=== PATIENT | female | born 1970 | race Caucasian/White ===

== ENCOUNTER → 2016-11-27 | Outpatient (CLI) | payer BC ==
--- NOTE | 2016-11-27 12:45 | US ---
EXAMINATION TYPE: US abdomen complete DATE OF EXAM: 11/27/2016 11:28 AM COMPARISON: NONE CLINICAL HISTORY: US. Hematuria, RUQ pain, right flank pain EXAM MEASUREMENTS: Liver Length: 17.3cm Gallbladder Wall: 0.2cm CBD: 0.3cm Spleen: 12.2cm Right Kidney: 9.7 x 3.7 x 5.0cm Left Kidney: 10.3 x 4.5 x 4.4cm ANATOMY: Pancreas: visualized portions appear wnl, tail obscured by overlying bowel content Liver: upper limits of normal in size Gallbladder: no evidence of stones Evidence for sonographic Foreman's sign: No CBD: appears wnl Spleen: appears wnl Right Kidney: No hydronephrosis or masses seen Left Kidney: No hydronephrosis or masses seen Upper IVC: wnl Abd Aorta: visualized portions appear wnl Bladder: not fully distended, appears wnl as visualized *Bilateral bladder jets seen The liver is homogenous. The intrahepatic portion of the IVC and proximal abdominal aorta are within normal limits. There is no evidence of cholelithiasis. Common bile duct is unremarkable. The visu alized portions of the pancreas are homogenous. The spleen is unremarkable. Kidneys are symmetric a nd free of hydronephrosis. No renal lesions are seen. IMPRESSION: No distinct abnormality identified. Normal Values: Liver Length: < 16cm wnl, 17-18cm upper limits, >18cm enlarged Spleen Length = < 13cm Renal Length = 9 - 12cm GB Wall: < 0.3cm CBD: < 0.6cm or < 1.0cm post cholecystectomy
== END | disposition home or self-care (01) ==
LOC: RADUSWWP 10:52
PROVIDERS: ATTEND Internal Medicine
DX: R10.11 Right upper quadrant pain (principal); R31.9 Hematuria, unspecified
CPT/HCPCS: 76700; 76857

== ENCOUNTER → 2018-03-25 | Outpatient (CLI) | payer BC ==
--- NOTE | 2018-03-25 09:18 | NM ---
Nuclear medicine hepatobiliary scan. HISTORY: Pain. DOSAGE: The patient received 8 ounces of ensure plus and 5.3 mCi of Technetium 99m Choletec. FINDINGS: There is normal hepatic extraction. The gallbladder is seen by 20 minutes. Ejection fracti on is 78%. IMPRESSION: 1. Normal hepatobiliary exam
== END | disposition home or self-care (01) ==
LOC: RADNMMAIN 06:52
PROVIDERS: ATTEND Internal Medicine
DX: K21.0 Gastro-esophageal reflux disease with esophagitis (principal); R12 Heartburn; R14.0 Abdominal distension (gaseous)
CPT/HCPCS: 78226; A9537

== ENCOUNTER → 2019-05-08 | Outpatient (CLI) | payer BC ==
--- NOTE | 2019-05-09 09:12 | MM ---
Reason for exam: screening (asymptomatic). Last mammogram was performed 1 year and 8 months ago. History: Benign US left guided VAD of the left breast, October 03, 2010. Took hormonal contraceptives for 16 years. Physical Findings: A clinical breast exam by your physician is recommended on an annual basis and results should be correlated with mammographic findings. MG 3D Screening Mammo W/Cad Bilateral CC and MLO view(s) were taken. Prior study comparison: September 14, 2017, bilateral MG screening mammo w CAD. September 11, 2016, bilateral MG screening mammo w CAD. The breast tissue is heterogeneously dense. This may lower the sensitivity of mammography. Previous mammotome biopsy in the left breast. There is chronic nodularity in the left breast. No significant changes when compared with prior studies. ASSESSMENT: Benign, BI-RAD 2 RECOMMENDATION: Routine screening mammogram of both breasts in 1 year.
== END | disposition home or self-care (01) ==
LOC: RADMAMWWP 07:01
PROVIDERS: ATTEND Internal Medicine
DX: Z12.31 Encounter for screening mammogram for malignant neoplasm of breast (principal)
CPT/HCPCS: 77063; 77067

== ENCOUNTER → 2019-08-28 | Outpatient (CLI) | payer BC ==
--- NOTE | 2019-08-28 08:34 | US ---
EXAMINATION TYPE: US pelvis complete transvag DATE OF EXAM: 08/28/2019 COMPARISON: NONE CLINICAL HISTORY: R10.2 pelvic pain. TECHNIQUE: Transvaginal (TV) and Transabdominal (TA) . Transabdominal sonographic images of the pel vis were acquired. Transvaginal sonographic images were medically necessary to better assess the fol lowing anatomy: Ovaries Date of LMP: 08/24/19 EXAM MEASUREMENTS: Uterus: 9.1 x 5.9 x 5.2 cm Endometrial Stripe: 0.9 cm Right Ovary: 2.1 x 1.7 x 1.7 cm Left Ovary: 2.9 x 1.8 x 1.4 cm 1. Uterus: Retroverted bulky, heterogeneous 2. Endometrium: wnl 3. Right Ovary: Dominant follicle measures 1.6 x 1.0 x 1.2 cm 4. Left Ovary: with follicles, largest measuring 1 cm Spectral, color and waveform doppler imaging shows good arterial and venous flow within the ovaries ; there is no evidence for ovarian torsion. 5. Bilateral Adnexa: wnl 6. Posterior cul-de-sac: wnl IMPRESSION: 1. Heterogenous appearance of the retroverted uterus without well-circumscribed lesion. Consideration could be given to multiple small noncircumscribed leiomyomas or less likely adenomyosis. 2. Endometrial thickness would be within normal limits for a premenopausal female in this patient wit h last stated menstrual cycle of 08/24/2019.
== END ==
LOC: RADUSWWP 07:23
PROVIDERS: ATTEND Internal Medicine
DX: N85.4 Malposition of uterus (principal)
CPT/HCPCS: 76830; 76856

== ENCOUNTER → 2020-10-09 | Outpatient (CLI) | payer BC ==
--- NOTE | 2020-10-09 08:46 | US ---
EXAMINATION TYPE: US pelvis complete transvag DATE OF EXAM: 10/09/2020 COMPARISON: US CLINICAL HISTORY: R10.2 pelvic and perin. Pelvic pain 2 weeks prior to menstrual cycle; TECHNIQUE: Transvaginal (TV) and Transabdominal (TA) . Transabdominal sonographic images of the pel vis were acquired. Transvaginal sonographic images were medically necessary per physician's order. Date of LMP: 09/24/2020 EXAM MEASUREMENTS: Uterus: 9.7 x 5.2 x 3.1 cm Endometrial Stripe: 1.0 cm Right Ovary: 2.2 x 1.2 x 1.2 cm Left Ovary: 2.8 x 1.8 x 1.4 cm 1. Uterus: Retroverted ; multiple Nabothian Cysts seen in cervix with largest = 0.6 x 0.5 x 0.6cm. 2. Endometrium: thickness is wnl for Day 16LMP 3. Right Ovary: multiple small follicles 4. Left Ovary: multiple small follicles with largest = 0.9 x 1.1 x 0.8cm. Spectral, color and waveform doppler imaging shows good arterial and venous flow within the ovaries ; there is no evidence for ovarian torsion. 5. Bilateral Adnexa: wnl 6. Posterior cul-de-sac: wnl IMPRESSION: Follicular cysts as noted. Otherwise unremarkable study. Cervical nabothian cysts.
--- NOTE | 2020-10-09 13:02 | MM ---
Reason for exam: screening (asymptomatic). Last mammogram was performed 1 year and 5 months ago. History: Benign US left guided VAD of the left breast, October 03, 2010. Took hormonal contraceptives for 16 years. Physical Findings: A clinical breast exam by your physician is recommended on an annual basis and results should be correlated with mammographic findings. MG 3D Screening Mammo W/Cad Bilateral CC and MLO view(s) were taken. Prior study comparison: May 08, 2019, bilateral MG 3d screening mammo w/cad. September 14, 2017, bilateral MG screening mammo w CAD. The breast tissue is extremely dense which could obscure a lesion on mammography. Previous mammotome biopsy in the left breast. There is no discrete abnormality. ASSESSMENT: Benign, BI-RAD 2 RECOMMENDATION: Routine screening mammogram of both breasts in 1 year.
== END | disposition home or self-care (01) ==
LOC: RADUSWWP 06:56
PROVIDERS: ATTEND Internal Medicine
DX: Z12.31 Encounter for screening mammogram for malignant neoplasm of breast (principal); N83.00 Follicular cyst of ovary, unspecified side; N88.8 Other specified noninflammatory disorders of cervix uteri; R10.2 Pelvic and perineal pain
CPT/HCPCS: 76830; 76856; 77063; 77067

== ENCOUNTER → 2021-12-19 | Outpatient (CLI) | payer BC ==
--- NOTE | 2021-12-22 09:50 | MM ---
Reason for exam: screening (asymptomatic). Last mammogram was performed 1 year and 2 months ago. History: Benign US left guided VAD of the left breast, October 03, 2010. Took hormonal contraceptives for 16 years. Physical Findings: A clinical breast exam by your physician is recommended on an annual basis and results should be correlated with mammographic findings. MG 3D Screening Mammo W/Cad Bilateral CC and MLO view(s) were taken. XCCL view(s) were taken of the left breast. Prior study comparison: October 09, 2020, bilateral MG 3d screening mammo w/cad. May 08, 2019, bilateral MG 3d screening mammo w/cad. The breast tissue is heterogeneously dense. This may lower the sensitivity of mammography. Stable benign calcifications. There is no discrete abnormality. No significant changes when compared with prior studies. ASSESSMENT: Benign, BI-RAD 2 RECOMMENDATION: Routine screening mammogram of both breasts in 1 year.
== END | disposition home or self-care (01) ==
LOC: RADMAMWWP 09:40
PROVIDERS: ATTEND Internal Medicine
DX: Z12.31 Encounter for screening mammogram for malignant neoplasm of breast (principal)
CPT/HCPCS: 77063; 77067